=== PATIENT | female | born 1990 | race Native Hawaiian/Other Pacific Islander ===

== ENCOUNTER → 2016-05-29 | Outpatient (CLI) | payer OTHER | END | disposition home or self-care (01) | LOC: GMAM 10:09 | PROVIDERS: ATTEND Family Medicine | DX: R53.82 Chronic fatigue, unspecified (principal); Z72.51 High risk heterosexual behavior ==

== ENCOUNTER → 2016-06-07 | Outpatient (CLI) | payer OTHER | END | disposition home or self-care (01) | LOC: GMAM 10:17 | PROVIDERS: ATTEND Family Medicine | DX: R82.5 Elevated urine levels of drugs, medicaments and biological substances (principal); R82.99 Other abnormal findings in urine; R29.898 Other symptoms and signs involving the musculoskeletal system; J30.1 Allergic rhinitis due to pollen; E55.9 Vitamin D deficiency, unspecified ==

== ENCOUNTER 2018-06-03 18:17 | Emergency (ER) | payer SELFPAY ==
[2018-06-03] MEDS ORDERED: ACETAMINOPHEN 500 MG TAB PO ONE (18:37)
--- NOTE | 2018-06-03 18:42 | ED.PDOC ---
History of Present Illness - General Chief Complaint: Trauma Stated Complaint: Pt fell in shower and hit her head Time Seen by Provider: 06/03/18 18:32 Source: patient - History of Present Illness Initial Comments: SHE FELL IN THE SHOWER LAST NIGHT AND INJURED HER HEAD. SHE DEVELOPED A HEMATOMA TO THE LEFT OCCIPUT. TODAY SHE HAS A VO AND FEELS DIZZY. Timing/Duration: other - 12 HRS AGO Severity: moderate Improving Factors: nothing Worsening Factors: nothing Associated Symptoms: weakness Allergies/Adverse Reactions: Allergies NO KNOWN ALLERGY Allergy (Verified 06/03/18 18:40) Home Medications: Ambulatory Orders Hydroxyzine HCl 25 mg PO DAILY 06/03/18 Review of Systems - Review of Systems Constitutional: States: no symptoms reported EENTM: States: no symptoms reported Respiratory: States: no symptoms reported Cardiology: States: no symptoms reported Gastrointestinal/Abdominal: States: no symptoms reported Genitourinary: States: no symptoms reported Musculoskeletal: States: no symptoms reported Skin: States: no symptoms reported Neurological: States: headache Endocrine: States: no symptoms reported Hematologic/Lymphatic: States: no symptoms reported Past Medical History (General) - Patient Medical History Hx Stroke: No Hx Dementia: No Family Medical History - Family History Mother Living Status: Still Living Hx Family Hypertension: Yes Hx Family Cancer: Yes Father Living Status: Still Living Hx Family Congestive Heart Failure: Yes Hx Cardiac Disease: Yes Physical Exam - Physical Exam General Appearance: Alert, No apparent distress, Well Developed, Well Groomed, Well Hydrated, Well Nourished Eye Exam: bilateral normal Ears, Nose, Throat: hearing grossly normal, normal ENT inspection Neck: non-tender, full range of motion, supple, normal inspection Respiratory: chest non-tender, lungs clear, normal breath sounds Cardiovascular/Chest: normal peripheral pulses, regular rate, rhythm, no edema, no gallop, no JVD Gastrointestinal/Abdominal: normal bowel sounds, non tender, soft, no organomegaly Rectal Exam: deferred Back Exam: normal inspection Extremity: normal range of motion, non-tender, normal inspection Neurologic: no motor/sensory deficits, normal mood/affect, oriented x 3 Progress - Results/Orders Results/Orders: CT BRAIN: NEGATIVE FOR ACUTE PROCESS Departure - Departure Clinical Impression: Closed head injury Qualifiers: Encounter type: initial encounter Qualified Code(s): S09.90XA - Unspecified injury of head, initial encounter Time of Disposition: 20:10 Disposition: Discharge to Home or Self Care Departure Forms: ED Discharge - Pt. Copy, Patient Portal Self Enrollment Instructions: Concussion in Adults Home Medications: Ambulatory Orders Hydroxyzine HCl 25 mg PO DAILY 06/03/18
[2018-06-03 18:43] VITALS: O2SAT 99
--- NOTE | 2018-06-03 20:04 | CT ---
EXAM DESCRIPTION: Head CLINICAL HISTORY: head injury COMPARISON: None Available. TECHNIQUE: Multiple helical axial tomographic images were obtained of the head without intravenous contrast. Coronal and sagittal reformatted images were obtained. This exam was performed according to our departmental dose-optimization program, which includes automated exposure control, adjustment of the mA and/or kV according to patient size and/or use of iterative reconstruction technique. FINDINGS: There is no acute intracranial hemorrhage. No mass. No midline shift. No ventriculomegaly. [place]-white matter differentiation is maintained. Mild paranasal sinus mucosal thickening is present. Mastoid air cells and middle ear spaces are clear. Orbits and orbital contents are unremarkable. Osseous structures are unremarkable. Surrounding soft tissues are unremarkable. IMPRESSION: No acute intracranial process. Electronically signed by: Venkat Saunders MD 06/03/2018 8:00 PM CDT
[2018-06-03 20:16] VITALS: BP 127/85; TEMP 98.2
== END 2018-06-03 20:16 | disposition home or self-care (01) ==
LOC: ER 18:17
DX: S09.90XA Unspecified injury of head, initial encounter (principal); W18.2XXA Fall in (into) shower or empty bathtub, initial encounter; Y92.89 Other specified places as the place of occurrence of the external cause